=== PATIENT | male | born 1980 | race Caucasian/White ===

== ENCOUNTER 2018-08-21 06:25 | Day surgery (SDC) | payer BC ==
[~2018-08-21] VITALS: Ht 182.9 cm; Wt 105.2 kg
--- NOTE | ~2018-08-21 | OP ---
PATIENT NAME: ROOSEVELT MARCH MEDICAL RECORD: [id number] :80 LOCATION: D.2231 ADMISSION DATE: SURGEON: REBECCA ELIZABETH MD DATE OF OPERATION: 08/21/2018 PREOPERATIVE DIAGNOSIS: A solitary thyroid nodule, left. POSTOPERATIVE DIAGNOSIS: A solitary thyroid nodule, left. PROCEDURE: Total thyroidectomy. SURGEON: Rebecca Elizabeth MD SPECIMENS: Left and right thyroid lobes. Frozen section diagnosis of follicular neoplasm. DRAINS: ELISEO drain through a separate stab incision inferior to the wound. COMPLICATIONS: None. DISPOSITION: Recovery stable. DESCRIPTION OF PROCEDURE: He was brought to the operating room and placed in supine position, sedated and intubated by anesthesia. He was positioned, prepped and draped in the usual sterile fashion and a skin incision was made with a 15 blade about long-term between the cricoid and the sternum between the sternocleidomastoid muscles. This was taken down through subcutaneous fat with the spatula tip cautery dividing the platysma layer then flaps were elevated inferiorly and superiorly and 4 separate 2-0 silk stick ties were used for stay sutures. The fascia was divided in the midline in layers using a cautery on a tonsil clamp. Once the strap muscles were , the thyroid was easily visible. He had a left thyroid nodule, a single solitary nodule. Rest of the thyroid was normal to palpation. This nodule was between 2 and 3 cm in size. It was on the left side, but it was on the isthmus crossing the midline. The left thyroid lobe was dissected out away from the strap muscles. Dissection inferiorly identified the recurrent laryngeal nerve and a parathyroid gland. The gland was dissected from inferior to superior avoiding manipulation of the recurrent laryngeal nerve and then the superior pedicle was taken down using dissection with a tonsil clamp, bipolar cautery and the vascular pedicle was tied off with a 2-0 silk tie. Once that was done, the left lobe was rotated medially. Gonzáles's ligament was dissected meticulously with Delgado forceps and bipolar cautery until the isthmus was free, really could not divide the isthmus near the midline because the nodule involved and the isthmus itself was very thick. I decided to dissect over and take a sizable portion of the right thyroid lobe. This was taken with a bipolar cautery in small sections and basically had to divide just through the middle of the gland there to dissect that free. The specimen was sent separate. 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 No papillary features, but possibility of a follicular carcinoma taking into account the fact that I had removed most of the right thyroid lobe already, patient's age and solitary nodule, nature of the nodule and its size, I proceeded with a right thyroid lobectomy as well. That was dissected out inferior to superiorly as well. Then found the recurrent laryngeal nerve, inferior parathyroid, and dissecting it right on the capsule. There was a sizable pyramidal lobe that it was dissected out and dissected well up in the thyroid cartilage. This was tied off with a 2-0 silk tie and divided OPERATIVE REPORT [id number] ROOSEVELT MARCH as well. The superior pedicle on the right side was dissected free and again bipolar cautery was used as well as tying larger vessels with a 2-0 silk tie. Then, this was dissected free from Gonzáles's ligament with careful dissection and this was sent for path permanent. The wound was irrigated copiously. There was no significant bleeding at all. Some Surgicel was placed over there around Gonzáles's ligament bilaterally and a drain was placed through a separate stab incision inferior to the wound. The head was lifted up. The strap muscles were approximated with a couple of interrupted 3-0 Vicryls. The platysma layer was closed with interrupted 3-0 Vicryl sutures and the skin was closed with 6-0 subcuticular Prolene. Steri-Strips and Mastisol were applied. The neck was examined carefully for any adenopathy. There were no lymph nodes even identifiable to send for path. He was transferred to recovery room. He had a good voice. Counts were correct. TRANSINT:[id number] Voice Confirmation ID: [id number] DOCUMENT ID: [id number] REBECCA ELIZABETH MD at 1256 CC: [id number] DICTATION DATE: 08/21/18 1329 BICYCLE MESSENGER: 08/21/[address] [facility] [address] [id number]
--- NOTE | ~2018-08-21 | HP ---
PATIENT: ROOSEVELT MARCH MEDICAL RECORD: [id number] ACCOUNT: [id number] LOCATION:D.MS [id number] : 80 ADMISSION DATE: 08/21/18 PCP: ADA SOTO DO HISTORY AND PHYSICAL EXAMINATION HISTORY: Roosevelt is a 38-year-old male with a left thyroid nodule, being admitted for left thyroid lobectomy. PAST MEDICAL HISTORY: Otherwise negative. PAST SURGICAL HISTORY: None. ALLERGIES: PENICILLIN. PHYSICAL EXAMINATION: GENERAL: Healthy-appearing male. FACE: Normal and symmetric. No lesions. EYES: Sclerae and conjunctivae are normal. EARS: Canals and TMs are normal. NOSE: No masses, polyps, or drainage. ORAL CAVITY AND OROPHARYNX: Normal. NECK: He has a left thyroid nodule, about 2 cm in size. CHEST: Clear. CARDIOVASCULAR: Regular rate and rhythm. No murmur. EXTREMITIES: Normal. DIAGNOSTIC DATA: Ultrasound shows a left-sided nodule, 22 x 17 mm in size. IMPRESSION: Left thyroid nodule, enlarging since last ultrasound. PLAN: Left thyroid lobectomy, possible total thyroidectomy. TRANSINT:[id number] Voice Confirmation ID: [id number] DOCUMENT ID: [id number] REBECCA CASTRO MD at 1344 CC: [id number] DICTATION DATE: 08/17/18 1351 KILNMAN: 08/17/18 1421 [facility] [address] [place] [address]
[2018-08-21] MEDS ORDERED: RANITIDINE HCL150 M1 PO (07:21)
[2018-08-21 07:26] VITALS: BP 130/76; Ht 182.9 cm; Wt 105.2 kg
[2018-08-21 13:29] VITALS: BP 126/68
[2018-08-21 17:01] VITALS: BP 130/78
[2018-08-21 20:00] VITALS: BP 113/69
[2018-08-22 06:07] VITALS: BP 126/70
[2018-08-22 08:18] VITALS: BP 131/71
[2018-08-22 12:16] VITALS: BP 126/63
[2018-08-22 15:58] VITALS: BP 114/62
== END 2018-08-22 17:30 | disposition home or self-care (01) ==
LOC: D.OPS 06:25 → D.PAN 07:30 → D.OPS 08:45 → D.PAN 12:00 → D.OPS 12:00 → D.MS 13:07 → D.OPS 08-22 17:30
DX: E04.1 Nontoxic single thyroid nodule (principal); D34 Benign neoplasm of thyroid gland; Z88.0 Allergy status to penicillin; Z01.812 Encounter for preprocedural laboratory examination

== ENCOUNTER → 2018-10-10 09:37 | Outpatient (CLI) | payer BC ==
[2018-08-21 07:26] VITALS: BMI 31.5
[~2018-10-10 09:37] MED LIST: RANITIDINE HCL150 M1 PO
[2018-10-10 10:39] LABS: T4 THYROXIN - FREE 0.98 ng/dL (0.76-1.46); THYROID STIMULATING HORMONE 12.12 uIU/mL (0.36-3.74)
== END | disposition home or self-care (01) ==
LOC: D.LAB 09:37
PROVIDERS: Otolaryngology
DX: E03.9 Hypothyroidism, unspecified (principal)

== ENCOUNTER → 2018-10-25 09:46 | Outpatient (CLI) | payer BC ==
[2018-08-21 07:26] VITALS: BMI 31.5
== END | disposition home or self-care (01) ==
LOC: D.US 09:00
DX: R10.13 Epigastric pain (principal); R14.0 Abdominal distension (gaseous); R10.9 Unspecified abdominal pain; R68.81 Early satiety

== ENCOUNTER → 2019-04-25 06:09 | Outpatient (CLI) | payer BC ==
[2018-08-21 07:26] VITALS: BMI 31.5
== END | disposition home or self-care (01) ==
LOC: D.US 06:09
PROVIDERS: ATTEND Internal Medicine Gastroenterology
DX: K76.89 Other specified diseases of liver (principal); K29.70 Gastritis, unspecified, without bleeding

== ENCOUNTER → 2019-04-27 08:30 | Outpatient (CLI) | payer BC ==
[2018-08-21 07:26] VITALS: BMI 31.5
== END | disposition home or self-care (01) ==
LOC: D.CT 08:30
PROVIDERS: ATTEND Internal Medicine Gastroenterology
DX: K76.89 Other specified diseases of liver (principal)

== ENCOUNTER → 2019-11-23 07:53 | Outpatient (CLI) | payer OTHER ==
[2018-08-21 07:26] VITALS: BMI 31.5
== END | disposition home or self-care (01) ==
LOC: D.CT 07:53
PROVIDERS: ATTEND Internal Medicine Gastroenterology
DX: K76.9 Liver disease, unspecified (principal)